=== PATIENT | male | born 1995 | race Two or more races ===

== ENCOUNTER 2019-02-17 23:45 | Emergency (ER) | payer SELFPAY ==
[~2019-02-17] VITALS: Ht 170.2 cm; Wt 68.0 kg
[2019-02-18 00:51] LABS: BASO % 0 % (0-3); EOS # 0.1 x10^3/uL (0.0-0.7); EOS % 1 % (0-3); HEMATOCRIT 40.5 % (39.0-53.0); HEMOGLOBIN 13.9 g/dL (13.0-17.5); LYMPH # 2.2 x10^3/uL (1.0-4.8); LYMPH % 26 % (24-48); MEAN CORPUSCULAR HEMOGLOBIN 28 pg (25-35); MEAN CORPUSCULAR HGB CONC 34 g/dL (31-37); MEAN CORPUSCULAR VOLUME 82 fL (79-100); MONO # 0.6 x10^3/uL (0.0-1.1); MONO % 7 % (0-9); NEUT # 5.7 x10^3uL (1.8-7.7); NEUT % 67 % (31-73); PLATELET COUNT 225 x10^3/uL (140-400); RED BLOOD COUNT 4.94 x10^6/uL (4.30-5.70); RED CELL DISTRIBUTION WIDTH 13.2 % (11.5-14.5); WHITE BLOOD COUNT 8.5 x10^3/uL (4.0-11.0)
[2019-02-18 01:00] VITALS: BP 128/61
[2019-02-18] MEDS ORDERED: LIDO:MAALOX 1:1 20 ML SINGLE DOSE. SWSW ONE (01:00)
[2019-02-18] MEDS ORDERED: LORazepam 0.5 MG TABLET PO ONE (01:00)
[2019-02-18 01:02] LABS: CALCIUM 9.7 mg/dL (8.5-10.1); CREATININE 1.3 mg/dL (0.7-1.3); GFR 67.3
[2019-02-18 01:05] LABS: ALBUMIN 4.3 g/dL (3.4-5.0); TOTAL BILIRUBIN 0.5 mg/dL (0.2-1.0); TOTAL PROTEIN 8.6 g/dL (6.4-8.2)
[2019-02-18] MEDS ORDERED: FAMO-63 PO (01:17)
[2019-02-18] MEDS ORDERED: POTASSIUM CHLORIDE 20 MEQ TABLET.ER. PO ONE (01:30)
--- NOTE | 2019-02-18 01:33 | PHYS DOC ---
Adult General Chief Complaint Chief Complaint: SHORTNESS OF BREATH HPI HPI Patient is a 24 year old male who presents with complaining of some burning in his mid chest area he drank a lot of alcohol yesterday feels like it is kind of hard for him to breathe back of his throat feels a little swollen at times. No abdominal pain he says that his stool is sometimes green sometimes brown no blood and no black. Sister brought him in for evaluation because she was worried about his symptoms. Patient used to do drugs but has not in over 2 months used to drink heavily and just was sober for 2 months but just drank heavily last couple of days again about 8. Yesterday. Review of Systems Review of Systems Constitutional: Denies fever or chills [] Eyes: Denies change in visual acuity, redness, or eye pain [] HENT: Denies nasal congestion or sore throat [] GI: Denies abdominal pain, nausea, vomiting, bloody stools or diarrhea [] : Denies dysuria or hematuria [] Musculoskeletal: Denies back pain or joint pain [] Integument: Denies rash or skin lesions [] All other systems were reviewed and found to be within normal limits, except as documented in this note. Current Medications Current Medications Current Medications Medications (Trade) Dose Ordered Sig/Luz Maria Start Time Stop Time Status Last Admin Dose Admin Lorazepam (Ativan) 1 mg 1X ONCE 02/18/19 01:00 02/18/19 01:01 DC 02/18/19 01:16 1 MG Multi-Ingredient Mouthwash/Gargle (Gi Cocktail) 20 ml 1X ONCE 02/18/19 01:00 02/18/19 01:01 DC 02/18/19 01:16 20 ML Potassium Chloride (Klor-Con) 40 meq 1X ONCE 02/18/19 01:30 02/18/19 01:31 02/18/19 01:18 40 MEQ Allergies Allergies Allergies Coded Allergies Type Severity Reaction Last Updated Verified No Known Drug Allergies 02/18/19 No Physical Exam Physical Exam Constitutional: Well developed, well nourished, no acute distress, non-toxic appearance. [] HENT: Normocephalic, atraumatic, bilateral external ears normal, oropharynx moist, no oral exudates, nose normal. [] Eyes: PERRLA, EOMI, conjunctiva normal, no discharge. [] Neck: Normal range of motion, no tenderness, supple, no stridor. [] Cardiovascular:Heart rate regular rhythm, no murmur [] Lungs & Thorax: Bilateral breath sounds clear to auscultation [] Abdomen: Bowel sounds normal, soft, no tenderness, no masses, no pulsatile masses. [] Skin: Warm, dry, no erythema, no rash. [] Back: No tenderness, no CVA tenderness. [] Extremities: No tenderness, no cyanosis, no clubbing, ROM intact, no edema. [] Neurologic: Alert and oriented X 3, normal motor function, normal sensory function, no focal deficits noted. [] Psychologic: Affect normal, judgement normal, mood normal. [] Current Patient Data Lab Values Laboratory Tests Test 02/18/19 00:38 White Blood Count 8.5 x10^3/uL (4.0-11.0) Red Blood Count 4.94 x10^6/uL (4.30-5.70) Hemoglobin 13.9 g/dL (13.0-17.5) Hematocrit 40.5 % (39.0-53.0) Mean Corpuscular Volume 82 fL (79-100) Mean Corpuscular Hemoglobin 28 pg (25-35) Mean Corpuscular Hemoglobin Concent 34 g/dL (31-37) Red Cell Distribution Width 13.2 % (11.5-14.5) Platelet Count 225 x10^3/uL (140-400) Neutrophils (%) (Auto) 67 % (31-73) Lymphocytes (%) (Auto) 26 % (24-48) Monocytes (%) (Auto) 7 % (0-9) Eosinophils (%) (Auto) 1 % (0-3) Basophils (%) (Auto) 0 % (0-3) Neutrophils # (Auto) 5.7 x10^3uL (1.8-7.7) Lymphocytes # (Auto) 2.2 x10^3/uL (1.0-4.8) Monocytes # (Auto) 0.6 x10^3/uL (0.0-1.1) Eosinophils # (Auto) 0.1 x10^3/uL (0.0-0.7) Basophils # (Auto) 0.0 x10^3/uL (0.0-0.2) Sodium Level 141 mmol/L (136-145) Potassium Level 3.0 mmol/L (3.5-5.1) L Chloride Level 102 mmol/L (98-107) Carbon Dioxide Level 27 mmol/L (21-32) Anion Gap 12 (6-14) Blood Urea Nitrogen 17 mg/dL (8-26) Creatinine 1.3 mg/dL (0.7-1.3) Estimated GFR (Cockcroft-Gault) 67.3 BUN/Creatinine Ratio 13 (6-20) Glucose Level 106 mg/dL (70-99) H Calcium Level 9.7 mg/dL (8.5-10.1) Total Bilirubin 0.5 mg/dL (0.2-1.0) Aspartate Amino Transferase (AST) 23 U/L (15-37) Alanine Aminotransferase (ALT) 44 U/L (16-63) Alkaline Phosphatase 143 U/L (46-116) H Troponin I Quantitative < 0.017 ng/mL (0.000-0.055) Total Protein 8.6 g/dL (6.4-8.2) H Albumin 4.3 g/dL (3.4-5.0) Albumin/Globulin Ratio 1.0 (1.0-1.7) Lipase 64 U/L (73-393) L Laboratory Tests 02/18/19 00:38 Laboratory Tests 02/18/19 00:38 EKG EKG []EKG I suspected sinus rhythm with J-point elevation no STEMI was seen interpreted by me the time of encounter rate is 61 Radiology/Procedures Radiology/Procedures [] Impressions: Chest x-ray my interpretation was negative acute Course & Med Decision Making Course & Med Decision Making Pertinent Labs and Imaging studies reviewed. (See chart for details) []Labs are essentially normal mild hypokalemia this was repleted in the emergency patient was given a GI cocktail if she felt better the time of disc harge. I suspect GERD Dragon Disclaimer Dragon Disclaimer This electronic medical record was generated, in whole or in part, using a voice recognition dictation system. Departure Departure Impression: Primary Impression: GERD (gastroesophageal reflux disease) Disposition: HOME, SELF-CARE Condition: STABLE Patient Instructions: Gastroesophageal Reflux Disease, Adult, [id number] Scripts Famotidine (PEPCID) 20 Mg Tablet 20 MG PO BID, #30 TAB Prov: BRO TRACY MD 02/18/19 BRO TRACY MD Feb 18, 2019 01:33
--- NOTE | 2019-02-18 04:24 | RAD ---
EXAM: AP View of the chest DATE: 02/18/2019 12:33 AM INDICATION: Chest pain COMPARISON: No Prior FINDINGS: The heart is not enlarged. Mediastinal and hilar contours are normal. No focal parenchymal airspace opacity. No pleural effusion or pneumothorax. IMPRESSION: 1. No radiographic evidence for acute cardiopulmonary process. Electronically signed by: Philipp Park MD (02/18/2019 4:21 AM) [facility]
--- NOTE | 2019-02-18 07:34 | EKG ---
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
== END 2019-02-18 01:25 | disposition home or self-care (01) ==
LOC: ER 02-18 00:28
DX: K21.9 Gastro-esophageal reflux disease without esophagitis (principal); R07.89 Other chest pain; E87.6 Hypokalemia
CPT/HCPCS: 36415; 71045; 80053; 83690; 84484; 85025; 93005; 99285-25

== ENCOUNTER 2019-04-17 14:35 | Emergency (ER) | payer SELFPAY ==
[~2019-04-17] VITALS: Ht 170.2 cm; Wt 68.0 kg
[~2019-04-17 14:35] MED LIST: FAMO-63 PO
[2019-04-17 15:36] VITALS: BP 123/61
[2019-04-17] MEDS ORDERED: IV NORMAL SALINE 1000ML BAG 1,000 ML IV SCH (15:55)
--- NOTE | 2019-04-17 17:02 | RAD ---
Two-view chest HISTORY: Chest pain COMPARISON: 02/18/2019 FINDINGS: Cardiomediastinal silhouette within normal limits. No evidence of pneumothorax. No pleural effusion. No evidence of infiltrate. Bones appear intact. IMPRESSION: No evidence of acute consolidating infiltrate. Electronically signed by: Matt Thompson MD (04/17/2019 4:59 PM) [facility]
[2019-04-17] MEDS ORDERED: LIDO:MAALOX 1:1 20 ML SINGLE DOSE. SWSW ONE (17:45)
[2019-04-17 17:48] LABS: BASO # 0.1 x10^3/uL (0.0-0.2); BASO % 0 % (0-3); EOS # 0.4 x10^3/uL (0.0-0.7); EOS % 3 % (0-3); HEMATOCRIT 39.7 % (39.0-53.0); HEMOGLOBIN 13.6 g/dL (13.0-17.5); LYMPH # 2.4 x10^3/uL (1.0-4.8); LYMPH % 17 % (24-48); MEAN CORPUSCULAR HEMOGLOBIN 28 pg (25-35); MEAN CORPUSCULAR HGB CONC 34 g/dL (31-37); MEAN CORPUSCULAR VOLUME 82 fL (79-100); MONO # 1.2 x10^3/uL (0.0-1.1); MONO % 9 % (0-9); NEUT # 10.1 x10^3/uL (1.8-7.7); NEUT % 71 % (31-73); PLATELET COUNT 218 x10^3/uL (140-400); RED BLOOD COUNT 4.85 x10^6/uL (4.30-5.70); RED CELL DISTRIBUTION WIDTH 13.1 % (11.5-14.5); WHITE BLOOD COUNT 14.2 x10^3/uL (4.0-11.0)
[2019-04-17 17:56] LABS: CALCIUM 8.8 mg/dL (8.5-10.1); CREATININE 1.2 mg/dL (0.7-1.3); GFR 73.8; POTASSIUM 3.4 mmol/L (3.5-5.1)
--- NOTE | 2019-04-17 18:22 | PHYS DOC ---
Past Medical History Past Medical History: No Pertinent History Past Surgical History: No Surgical History Alcohol Use: Heavy Drug Use: Cocaine Adult General Chief Complaint Chief Complaint: CHEST PAIN HPI HPI Patient is a 24 year old male who presents with chest pain. chest pain started this morning after snorting cocaine for the first time. Used cocaine at 10 am States yesterday after work he did not eat, just drank ETOH. Had some ETOH today with cocaine Chest pain is diffuse right chest, worse with ROM and breathing. No abdominal pain or N/V but reports GERD. He is resting in no distress Review of Systems Review of Systems Constitutional: Denies fever or chills [] Eyes: Denies change in visual acuity, redness, or eye pain [] HENT: Denies nasal congestion or sore throat [] Respiratory: Denies cough or shortness of breath [] Cardiovascular: No additional information not addressed in HPI []right sided CP GI: Denies abdominal pain, nausea, vomiting, bloody stools or diarrhea [] c/o GERD Musculoskeletal: Denies back pain or joint pain [] Integument: Denies rash or skin lesions [] Neurologic: Denies headache, focal weakness or sensory changes [] Endocrine: Denies polyuria or polydipsia [] All other systems were reviewed and found to be within normal limits, except as documented in this note. Current Medications Current Medications Current Medications Medications (Trade) Dose Ordered Sig/Luz Maria Start Time Stop Time Status Last Admin Dose Admin Multi-Ingredient Mouthwash/Gargle (Gi Cocktail) 20 ml 1X ONCE 04/17/19 17:45 04/17/19 17:46 DC 04/17/19 17:50 20 ML Sodium Chloride 1,000 ml @ 1,000 mls/hr Q1H 04/17/19 15:55 04/17/19 16:54 DC 04/17/19 16:36 1,000 MLS/HR Allergies Allergies Allergies Coded Allergies Type Severity Reaction Last Updated Verified No Known Drug Allergies 02/18/19 No Physical Exam Physical Exam Constitutional: Well developed, well nourished, no acute distress, non-toxic appearance. [] HENT: Normocephalic, atraumatic, bilateral external ears normal, oropharynx moist, no oral exudates, nose normal. [] Eyes: PERRLA, EOMI, conjunctiva normal, no discharge. [] Neck: Normal range of motion, no tenderness, supple, no stridor. [] Cardiovascular:Heart rate regular rhythm, no murmur [] Lungs & Thorax: Bilateral breath sounds clear to auscultation [] Abdomen: Bowel sounds normal, soft, no tenderness, no masses, no pulsatile masses. [] Skin: Warm, dry, no erythema, no rash. [] Back: No tenderness, no CVA tenderness. [] Extremities: No tenderness, no cyanosis, no clubbing, ROM intact, no edema. [] Neurologic: Alert and oriented X 3, normal motor function, normal sensory function, no focal deficits noted. [] Psychologic: Affect normal, judgement normal, mood normal. [] Current Patient Data Vital Signs Vital Signs Date Time Temp Pulse Resp B/P (MAP) Pulse Ox O2 Delivery O2 Flow Rate FiO2 04/17/19 15:35 98.1 78 16 129/65 (86) 98 Room Air 98.1 Lab Values Laboratory Tests Test 04/17/19 17:42 White Blood Count 14.2 x10^3/uL (4.0-11.0) H Red Blood Count 4.85 x10^6/uL (4.30-5.70) Hemoglobin 13.6 g/dL (13.0-17.5) Hematocrit 39.7 % (39.0-53.0) Mean Corpuscular Volume 82 fL (79-100) Mean Corpuscular Hemoglobin 28 pg (25-35) Mean Corpuscular Hemoglobin Concent 34 g/dL (31-37) Red Cell Distribution Width 13.1 % (11.5-14.5) Platelet Count 218 x10^3/uL (140-400) Neutrophils (%) (Auto) 71 % (31-73) Lymphocytes (%) (Auto) 17 % (24-48) L Monocytes (%) (Auto) 9 % (0-9) Eosinophils (%) (Auto) 3 % (0-3) Basophils (%) (Auto) 0 % (0-3) Neutrophils # (Auto) 10.1 x10^3/uL (1.8-7.7) H Lymphocytes # (Auto) 2.4 x10^3/uL (1.0-4.8) Monocytes # (Auto) 1.2 x10^3/uL (0.0-1.1) H Eosinophils # (Auto) 0.4 x10^3/uL (0.0-0.7) Basophils # (Auto) 0.1 x10^3/uL (0.0-0.2) Sodium Level 142 mmol/L (136-145) Potassium Level 3.4 mmol/L (3.5-5.1) L Chloride Level 106 mmol/L (98-107) Carbon Dioxide Level 23 mmol/L (21-32) Anion Gap 13 (6-14) Blood Urea Nitrogen 12 mg/dL (8-26) Creatinine 1.2 mg/dL (0.7-1.3) Estimated GFR (Cockcroft-Gault) 73.8 Glucose Level 98 mg/dL (70-99) Calcium Level 8.8 mg/dL (8.5-10.1) Troponin I Quantitative < 0.017 ng/mL (0.000-0.055) Laboratory Tests 04/17/19 17:42 Laboratory Tests 04/17/19 17:42 EKG EKG 1438: NSR rate [address] elevation, EP Interpretation[] Radiology/Procedures Radiology/Procedures []IMAGING REPORT Signed PATIENT: WYATT FOURNIER ACCOUNT: [id number] : 1995 LOCATION: ER AGE: 24 SEX: M EXAM STATUS: REG ER ORD. PHYSICIAN: NATHAN GREENE APRN REASON: CP PROCEDURE: CHEST PA & LATERAL Two-view chest HISTORY: Chest pain COMPARISON: 02/18/2019 FINDINGS: Cardiomediastinal silhouette within normal limits. No evidence of pneumothorax. No pleural effusion. No evidence of infiltrate. Bones appear intact. IMPRESSION: No evidence of acute consolidating infiltrate. Electronically signed by: Matt Thompson MD (04/17/2019 4:59 PM) [facility] DICTATED and SIGNED BY: MATT THOMPSON MD DATE: 04/17/19 1659 Impressions: Chest pain, drug abuse Course & Med Decision Making Course & Med Decision Making Pertinent Labs and Imaging studies reviewed. (See chart for details) []Patient here for right sided chest pain, started right after using cocaine for the first time today, 10 am ETOH yesterday He denies SOB, pain is reproducible. No dizziness. Reports he is hungry Patient is awake and alert, does not appear altered Labs EKG and chest xray reviewed Ate meal, VSS GI cocktail and symptoms are minimal Stable for home care, educated on home care fu and reasons to return to the ER Angela Disclaimer Angela Disclaimer This electronic medical record was generated, in whole or in part, using a voice recognition dictation system. Departure Departure Impression: Primary Impression: Drug abuse, cocaine type Additional Impression: Chest pain Disposition: HOME, SELF-CARE Condition: STABLE Referrals: NO PCP (PCP) [facility] Patient Instructions: Chest Pain (Nonspecific), Drug Abuse, FAQs Additional Instructions: Go home and rest Drink fluids and eat balanced meal No drug abuse Common side effect of cocaine is chest pain and ill feeling Call the clinic for follow up, return for any concerns or worsening symptoms Problem Qualifiers NATHAN GREENE APRN Apr 17, 2019 18:22
--- NOTE | 2019-04-18 06:18 | EKG ---
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
== END 2019-04-17 18:37 | disposition home or self-care (01) ==
LOC: ER 14:35
DX: R07.89 Other chest pain (principal); F14.20 Cocaine dependence, uncomplicated; F10.20 Alcohol dependence, uncomplicated; Y90.9 Presence of alcohol in blood, level not specified; K21.9 Gastro-esophageal reflux disease without esophagitis
CPT/HCPCS: 36415; 71046; 80048; 84484; 85025; 93005; 99285; J7030

== ENCOUNTER 2019-09-12 11:58 | Emergency (ER) | payer SELFPAY ==
[~2019-09-12] VITALS: Ht 170.2 cm; Wt 72.3 kg
[2019-09-12 12:35] LABS: BASO # 0.1 x10^3/uL (0.0-0.2); BASO % 1 % (0-3); EOS # 0.5 x10^3/uL (0.0-0.7); EOS % 4 % (0-3); HEMOGLOBIN 15.5 g/dL (13.0-17.5); LYMPH % 32 % (24-48); MEAN CORPUSCULAR HEMOGLOBIN 28 pg (25-35); MEAN CORPUSCULAR HGB CONC 34 g/dL (31-37); MEAN CORPUSCULAR VOLUME 83 fL (79-100); MONO # 1.2 x10^3/uL (0.0-1.1); MONO % 10 % (0-9); NEUT # 6.8 x10^3/uL (1.8-7.7); NEUT % 54 % (31-73); PLATELET COUNT 308 x10^3/uL (140-400); RED BLOOD COUNT 5.45 x10^6/uL (4.30-5.70); RED CELL DISTRIBUTION WIDTH 13.3 % (11.5-14.5); WHITE BLOOD COUNT 12.6 x10^3/uL (4.0-11.0)
[2019-09-12] MEDS ORDERED: MULTIVIT INFUSN,ADULT 4,VIT K 10 ML, THIAMINE INJ 100 MG, FOLIC ACID INJ 1 MG in IV NOR... IV ONE (12:45)
[2019-09-12] MEDS ORDERED: ONDANSETRON PF 4 MG/2 ML VIAL. IV ONE (12:45)
[2019-09-12] MEDS ORDERED: LIDO:MAALOX 1:1 20 ML SINGLE DOSE. SWSW ONE (12:45)
[2019-09-12 12:46] LABS: CALCIUM 9.8 mg/dL (8.5-10.1); CREATININE 1.1 mg/dL (0.7-1.3); GFR 81.6; POTASSIUM 3.8 mmol/L (3.5-5.1)
[2019-09-12 12:52] LABS: ALBUMIN 4.2 g/dL (3.4-5.0); TOTAL BILIRUBIN 0.4 mg/dL (0.2-1.0); TOTAL PROTEIN 8.6 g/dL (6.4-8.2)
[2019-09-12 13:15] LABS: ACETAMIN < 2 mcg/ml (10-30); ETHANOL < 10 mg/dL (0-10); SALIC < 2.8 mg/dL (2.8-20.0)
[2019-09-12 15:37] VITALS: BP 116/75
--- NOTE | 2019-09-12 15:40 | PHYS DOC ---
Past Medical History Past Medical History: No Pertinent History Past Surgical History: No Surgical History Alcohol Use: Heavy Additional Information: reports drinking heavily every Thursday, Thursday, and sometimes Sundays Drug Use: Cocaine Adult General Chief Complaint Chief Complaint: ABDOMINAL PAIN HPI HPI Patient is a 24 year old Yoruba male who presented to the emergency department with complaints of anxiety abdominal pain, and chest pain after heavily drinking beer over the weekend. Patient also states that he used cocaine yesterday. He states that he does not usually do illicit drugs. He does state that he has a problem with drinking over 24 beers a day every weekend. Patient states he would like help with stopping drinking alcohol. He denies any fever, cough, shortness of breath, nausea, vomiting, diarrhea, back pain, sore throat, ear pain, or wheezing. Denies any suicidal or homicidal ideations. Patient states that he has felt like this in the past and been at the hospital for treatment of alcohol withdrawal symptoms. He currently rates his pain a 7 out of 10 on the pain scale and describes the pain as a burning sensation that radiates up to his chest. Patient states that he does smoke cigarettes, less than a pack of cigarettes daily. He reports that he has had numbness, and tingling in his hands and feet and that he has felt dizzy with position changes today. All other ROS is neg unless otherwise noted in HPI. Review of Systems Review of Systems See Above Current Medications Current Medications Current Medications Medications (Trade) Dose Ordered Sig/Luz Maria Start Time Stop Time Status Last Admin Dose Admin Lorazepam (Ativan Inj) 1 mg 1X ONCE 09/12/19 12:45 09/12/19 12:50 DC 09/12/19 13:09 1 MG Multi-Ingredient Mouthwash/Gargle (Gi Cocktail) 20 ml 1X ONCE 09/12/19 12:45 09/12/19 12:50 DC 09/12/19 13:14 20 ML Multivitamins 10 ml/Thiamine HCl 100 mg/Folic Acid 1 mg/Sodium Chloride 1,011.2 ml @ 1,000.088 mls/hr 1X ONCE 09/12/19 12:45 09/12/19 13:45 DC 09/12/19 13:13 1,000.088 MLS/HR Ondansetron HCl (Zofran) 4 mg 1X ONCE 09/12/19 12:45 09/12/19 12:50 DC 09/12/19 13:09 4 MG Allergies Allergies Allergies Coded Allergies Type Severity Reaction Last Updated Verified No Known Drug Allergies 02/18/19 No Physical Exam Physical Exam See Above Constitutional: Well developed, well nourished, appears anxious, non-toxic appearance. [] HENT: Normocephalic, atraumatic, bilateral external ears normal, oropharynx moist, no oral exudates, nose normal. [] Eyes: PERRLA, EOMI, conjunctiva normal, no discharge. [] Neck: Normal range of motion, no tenderness, supple, no stridor. [] Cardiovascular:Heart rate regular rhythm, no murmur [] Lungs & Thorax: Bilateral breath sounds clear to auscultation, mildly increased respiratory rate, no retractions, no wheezing, speaking full sentences [] Abdomen: Bowel sounds normal, soft, no tenderness, no masses, no pulsatile masses. [] Skin: Warm, dry, no erythema, no rash. [] Back: No tenderness Extremities: No cyanosis, no clubbing, ROM intact, no edema, fine tremors of bilateral upper extremities. [] Neurologic: Alert and oriented X 3, no focal deficits noted. [] Psychologic: Affect anxious, judgement normal, nonsuicidal, non-homicidal. [] Current Patient Data Vital Signs Vital Signs Date Time Temp Pulse Resp B/P (MAP) Pulse Ox O2 Delivery O2 Flow Rate FiO2 09/12/19 15:37 68 16 116/75 (89) 97 Room Air 09/12/19 12:10 98.6 98.6 Lab Values Laboratory Tests Test 09/12/19 12:25 White Blood Count 12.6 x10^3/uL (4.0-11.0) H Red Blood Count 5.45 x10^6/uL (4.30-5.70) Hemoglobin 15.5 g/dL (13.0-17.5) Hematocrit 45.0 % (39.0-53.0) Mean Corpuscular Volume 83 fL (79-100) Mean Corpuscular Hemoglobin 28 pg (25-35) Mean Corpuscular Hemoglobin Concent 34 g/dL (31-37) Red Cell Distribution Width 13.3 % (11.5-14.5) Platelet Count 308 x10^3/uL (140-400) Neutrophils (%) (Auto) 54 % (31-73) Lymphocytes (%) (Auto) 32 % (24-48) Monocytes (%) (Auto) 10 % (0-9) H Eosinophils (%) (Auto) 4 % (0-3) H Basophils (%) (Auto) 1 % (0-3) Neutrophils # (Auto) 6.8 x10^3/uL (1.8-7.7) Lymphocytes # (Auto) 4.0 x10^3/uL (1.0-4.8) Monocytes # (Auto) 1.2 x10^3/uL (0.0-1.1) H Eosinophils # (Auto) 0.5 x10^3/uL (0.0-0.7) Basophils # (Auto) 0.1 x10^3/uL (0.0-0.2) Sodium Level 139 mmol/L (136-145) Potassium Level 3.8 mmol/L (3.5-5.1) Chloride Level 100 mmol/L (98-107) Carbon Dioxide Level 24 mmol/L (21-32) Anion Gap 15 (6-14) H Blood Urea Nitrogen 12 mg/dL (8-26) Creatinine 1.1 mg/dL (0.7-1.3) Estimated GFR (Cockcroft-Gault) 81.6 BUN/Creatinine Ratio 11 (6-20) Glucose Level 101 mg/dL (70-99) H Calcium Level 9.8 mg/dL (8.5-10.1) Total Bilirubin 0.4 mg/dL (0.2-1.0) Aspartate Amino Transferase (AST) 40 U/L (15-37) H Alanine Aminotransferase (ALT) 77 U/L (16-63) H Alkaline Phosphatase 177 U/L (46-116) H Total Protein 8.6 g/dL (6.4-8.2) H Albumin 4.2 g/dL (3.4-5.0) Albumin/Globulin Ratio 1.0 (1.0-1.7) Lipase 107 U/L (73-393) Salicylates Level < 2.8 mg/dL (2.8-20.0) L Salicylate Last Dose Date Unknown Salicylate Last Dose Time Unknown Acetaminophen Level < 2 mcg/ml (10-30) L Acetaminophen Last Dose Date Unknown Acetaminophen Last Dose Time Unknown Ethyl Alcohol Level < 10 mg/dL (0-10) Laboratory Tests 09/12/19 12:25 Laboratory Tests 09/12/19 12:25 EKG EKG [] Radiology/Procedures Radiology/Procedures 1445- breathing with the PAT team at bedside to evaluate patient. 1530- patient was provided with follow-up information for Alcoholics Anonymous, [facility], [facility] and other community resources by Umair, he was encouraged to follow-up for outpatient treatment.[] Patient's vital signs were stable throughout the visit. CBC revealed a white count of 12.6, was otherwise unremarkable; CMP revealed glucose of 101, AST of 40, ALT of 77, alkaline phosphatase of 177, and total protein of 8.6 otherwise unremarkable: Salicylates, acetaminophen, and alcohol levels were all negative, we were unable to obtain a urine for urine drug screening. The patient was given 1 mg of IV Ativan, a GI cocktail, 4 mg of Zofran, and a banana bag in the emergency department. The burning sensation in his abdomen and chest with after the GI cocktail. Patient denied nausea, and his anxiety decreased after the Ativan. Patient was discharged home with community resources and verbalized an under standing of need for follow-up. He was instructed to return to the ER for symptoms worsen. Patient verbalized an understanding of home care, medications, follow-up, and return to ED instructions and was in agreement with the plan of care. Course & Med Decision Making Course & Med Decision Making Pertinent Labs and Imaging studies reviewed. (See chart for details) [] Dragon Disclaimer Dragon Disclaimer This electronic medical record was generated, in whole or in part, using a voice recognition dictation system. Departure Departure Impression: Primary Impression: Anxiety Additional Impressions: Drug abuse, cocaine type Alcohol abuse Disposition: HOME, SELF-CARE Condition: STABLE Referrals: NO PCP (PCP) Patient Instructions: Alcohol, FAQs, Anxiety and Panic Attacks, [id number], Cocaine Abuse-Brief Additional Instructions: Stop drinking alcohol. Follow-up using the resources provided to you by Umair and alcoholics anonymous. Return to the emergency department if symptoms worsen. Problem Qualifiers ALPA BROWN APRN Sep 12, 2019 15:40
== END 2019-09-12 16:00 | disposition home or self-care (01) ==
LOC: ER 11:58
DX: F41.9 Anxiety disorder, unspecified (principal); R07.89 Other chest pain; R10.9 Unspecified abdominal pain; F15.90 Other stimulant use, unspecified, uncomplicated; F10.10 Alcohol abuse, uncomplicated; Z98.890 Other specified postprocedural states
CPT/HCPCS: 36415; 80053; 80329; 83690; 85025; 96365; 96375; 99284; G0480; J2060; J2405; J7030